=== PATIENT | male | born 1965 | race Caucasian/White ===

== ENCOUNTER 2017-07-29 13:00 | Emergency (ER) | payer OTHER, SELFPAY ==
[2017-07-29 13:01] VITALS: BP 139/73; PULSE 72; RESP 18; TEMP 36.6; O2SAT 96; BMI 33.5
[2017-07-29 13:11] LABS: Bedside Glucose 103 mg/dL (70-110)
--- NOTE | 2017-07-29 13:16 | ED.VISSUMM ---
- ER Visit Summary Date of Service: 07/29/17 Chief Complaint: Low blood sugar History of Present Illness: The patient is a 52 M 3 of insulin-dependent diabetes. He has an insulin pump and a continuous glucose sensor. Patient was driving today his blood sugar was low he will pulled over. His blood sugar that time was 40. Paramedics treated him with the glucose in his blood sugar was 135. He states he feels much better. He denies any other complaints. He denies any headache, chest pain or shortness of breath. He states that his glucose sensor need to be changed he had had time to do it yet and that is why this occurred today. He did take his insulin this morning. He denies any nausea, vomiting or diarrhea. Physical Examination: Well-appearing male. Vital signs are stable afebrile. Nursing staff did a BGT on him it was 103. He is without complaints. HEENT exam normal. Pupils round reactive light. Normal speech. No facial droop. Neck nontender. Lungs good auscultation bilaterally. Heart regular rate and rhythm no murmur. Abdomen soft nontender. Remedies moves all 4. Neurovascularly intact. Awake alert. Normal motor strength. Neurologically is awake and alert without any motor loss. Test Results: BGT equals 103. Emergency Department Course and Treatment: Patient will be fed in the ER and discharged to home. He knows to watch his blood sugars closely. Treatment Plan: [] Disposition: discharge Impression: Hypoglycemia History of insulin-dependent diabetes with an insulin pump This note was generated with [employer] dictation software. It may contain incorrect words, spelling, and punctuation that were not noted in review of the chart prior to signing ED Disposition - Plan for ED Patient: Chief Complaint: Hypoglycemia Referrals: Clayton Cohen MD [Primary Care Provider] -
--- NOTE | 2017-07-29 13:19 | ED.DEP ---
ED Disposition - Plan for ED Patient: Disposition: Home or Assisted Living Chief Complaint: Hypoglycemia Instructions: ED Diabetes Hypoglycemia Insulin React Referrals: Clayton Cohen MD [Primary Care Provider] - As Needed Additional Instructions: Blood sugars closely. Better to let them run a little high today than low.
[2017-07-29 14:01] LABS: Bedside Glucose 90 mg/dL (70-110)
[2017-07-29 14:08] VITALS: BP 137/66; PULSE 68; RESP 17
== END 2017-07-29 14:09 | disposition home or self-care (01) ==
PROVIDERS: Emergency Provider Emergency Medicine; Family Provider Family Medicine; PCP Family Medicine
DX: E11.649 Type 2 diabetes mellitus with hypoglycemia without coma (principal); Z96.41 Presence of insulin pump (external) (internal); Z79.4 Long term (current) use of insulin; Z79.82 Long term (current) use of aspirin; Z79.899 Other long term (current) drug therapy
CPT/HCPCS: 82962; 99285; A4216